=== PATIENT | female | born 1995 | race Caucasian/White ===

== ENCOUNTER 2018-02-15 19:14 | Emergency (ER) | payer BC, OTHER ==
[~2018-02-15] VITALS: Ht 160 cm; Wt 59.9 kg
[2018-02-15 19:45] VITALS: BP 113/79
--- NOTE | 2018-02-15 21:01 | PHYS DOC ---
Past History Past Medical History: No Pertinent History Past Surgical History: No Surgical History Alcohol Use: None Drug Use: None Adult General Chief Complaint Chief Complaint: DENTAL PROBLEM HPI HPI 22-year-old female presents with left lower quadrant dental pain. The patient has had a known dental carry for some time, but has not been having pain from it. Today she began have throbbing pain 7 out of 10 in this area. Nothing seems to make it better. He called around and could not find a dentist that is open because it is Friday. She denies nausea, vomiting, fever. Denies trauma. She is hoping to get some pain relief until she can get to a dentist tomorrow. Review of Systems Review of Systems Constitutional: Denies fever or chills [] Eyes: Denies change in visual acuity, redness, or eye pain [] HENT: Denies nasal congestion or sore throat. Has dental pain[] Respiratory: Denies cough or shortness of breath [] Cardiovascular: No additional information not addressed in HPI [] GI: Denies abdominal pain, nausea, vomiting, bloody stools or diarrhea [] : Denies dysuria or hematuria [] Musculoskeletal: Denies back pain or joint pain [] Integument: Denies rash or skin lesions [] Neurologic: Denies headache, focal weakness or sensory changes [] Endocrine: Denies polyuria or polydipsia [] All other systems were reviewed and found to be within normal limits, except as documented in this note. Allergies Allergies Allergies Coded Allergies Type Severity Reaction Last Updated Verified No Known Drug Allergies 02/15/18 No Physical Exam Physical Exam Constitutional: Well developed, well nourished, no acute distress, non-toxic appearance. [] HENT: Normocephalic, atraumatic, bilateral external ears normal, oropharynx moist, no oral exudates, nose normal. Dental caries of the left lower quadrant. No sign of infection.[] Eyes: PERRLA, EOMI, conjunctiva normal, no discharge. [] Neck: Normal range of motion, no tenderness, supple, no stridor. [] Cardiovascular:Heart rate regular rhythm, no murmur [] Lungs & Thorax: Bilateral breath sounds clear to auscultation [] Abdomen: Bowel sounds normal, soft, no tenderness, no masses, no pulsatile masses. [] Skin: Warm, dry, no erythema, no rash. [] Back: No tenderness, no CVA tenderness. [] Extremities: No tenderness, no cyanosis, no clubbing, ROM intact, no edema. [] Neurologic: Alert and oriented X 3, normal motor function, normal sensory function, no focal deficits noted. [] Psychologic: Affect normal, judgement normal, mood normal. [] Current Patient Data Vital Signs Vital Signs Date Time Temp Pulse Resp B/P (MAP) Pulse Ox O2 Delivery O2 Flow Rate FiO2 02/15/18 19:45 98.2 83 18 100 Room Air EKG EKG [] Radiology/Procedures Radiology/Procedures [] Course & Med Decision Making Course & Med Decision Making Pertinent Labs and Imaging studies reviewed. (See chart for details) I performed a nerve block for the patient. See note below. The patient tolerated well and good pain relief. I will also discharge her with a short course of Aubrey 5/325 and a list of dentists to contact for definitive care. I performed an inferior alveolar nerve block on the patient. A timeout was performed and the proper site was identified. The patient agreed to the procedure. A mixture of 0.5% bupivacaine 2 mL combined with 2 mL 1% lidocaine with epi was chosen for the procedure. The injection was made with a 12 mL syringe with a 30-gauge 1-1/4 inch needle. Landmarks were identified, and injection was made. The patient tolerated the procedure well. A total of 2 mL of fluid was injected. Patient achieved good anesthesia. [] Dragon Disclaimer Dragon Disclaimer This electronic medical record was generated, in whole or in part, using a voice recognition dictation system. Departure Departure: Referrals: PCP,NO (PCP) Scripts Hydrocodone Bit/Acetaminophen (NORCO 5-325 TABLET) 1 Each Tablet 1 TAB PO PRN Q6HRS PRN for PAIN, #14 TAB 0 Refills Prov: CARLOS BIRD DO 02/15/18 CARLOS BIRD DO Feb 15, 2018 21:01
[2018-02-15] MEDS ORDERED: HYDR-971 PO (21:02)
== END 2018-02-15 21:06 | disposition home or self-care (01) ==
LOC: EDSEX 19:14 → ER 19:14
DX: K02.9 Dental caries, unspecified (principal)
CPT/HCPCS: 64400; 99284